=== PATIENT | male | born 2000 | race Two or more races ===

== ENCOUNTER 2020-07-10 19:40 | Emergency (ER) | payer MEDICAID, OTHER ==
[~2020-07-10] VITALS: Ht 162.6 cm; Wt 70.3 kg
[2020-07-10 19:45] VITALS: BP 139/61
[2020-07-10 20:43] VITALS: BP 139/61
== END 2020-07-10 20:43 | disposition home or self-care (01) ==
LOC: MED 19:40
DX: S39.012A Strain of muscle, fascia and tendon of lower back, initial encounter (principal); V89.2XXA Person injured in unspecified motor-vehicle accident, traffic, initial encounter; Y93.89 Activity, other specified; Y92.89 Other specified places as the place of occurrence of the external cause; Y99.8 Other external cause status
CPT/HCPCS: 99283